=== PATIENT | female | born 1965 | race Caucasian/White ===

== ENCOUNTER 2024-03-05 07:06 | Emergency (ER) | payer OTHER, SELFPAY ==
[2024-03-05 07:11] VITALS: BP 163/100; PULSE 66; RESP 18; TEMP 37.1; O2SAT 97; BMI 36.0
--- NOTE | 2024-03-05 07:24 | XR_ITS ---
Patient: JEYSON RIVERA Facility:?[facility] Patient ID:?[id number] Site Patient ID:?[id number]. Site :?[id number] Study:?XRay-Extremity Right elbow 3v-03/05/2024 7:41:57 AM Ordering Physician:?Frannie Das Final Report: Indication: Injury and pain Technique: Right elbow 3 views Comparison: None Impression: A subtle nondisplaced fracture involving the volar aspect of the radial head, with associated elbow effusion. Small radiopaque fragment adjacent to the distal lateral humeral epicondyle, which may represent calcium deposits in the setting of tendinosis versus less likely small avulsion fracture. Dictated by Wilfrid Degroot MD @ 03/05/2024 7:48:45 AM Signed by:?Wilfrid Degroot MD @03/05/2024 7:48:45 AM (Electronic Signature)
--- NOTE | 2024-03-05 07:25 | ED_ITS ---
HPI - General Adult General Chief complaint: Extremity Pain/Injury, Upper Stated complaint: arm injury Time Seen by Provider: 03/05/24 07:30 Source: patient Mode of arrival: ambulatory Limitations: no limitations History of Present Illness HPI narrative: 59-year-old female traveling [employer] presents to the emergency department after a fall in a parking lot. Reports that she tripped over her feet as she wa s attempting to get her bags and get out of the car. She fell landing on her left knee and her right elbow. She now has significant pain in the right elbow area, cannot extend. Pain is mainly at the proximal radial head area. She has a prior history of humeral fracture with plates from 2019. She does not take any anticoagulants. She did not hit her head. She says the knee just feels like it is bruised, she can bear weight, walk and bend the knee though it is tender. She has history of bilateral knee replacements. Denies neurological changes, has not taken any medication for pain thus far. Incident happened only a few minutes prior to presentation. Past medical history notable for hypertension. Reports use of amlodipine, Synthroid, losartan, metoprolol and sertraline. Nonsmoker. Only meal this morning has been a few sips of black coffee. No anticoagulants. ROS is notable for right elbow and left knee pain as stated above, otherwise denies times 12 systems. Related Data Home Medications Medication Instructions Recorded Confirmed amlodipine 5 mg tablet 5 mg PO DAILY 03/05/24 03/05/24 levothyroxine 150 mcg tablet 150 mcg PO DAILY 03/05/24 03/05/24 (Levo-T) losartan 100 mg tablet 100 mg PO DAILY 03/05/24 03/05/24 metoprolol succinate 100 mg 100 mg PO DAILY 03/05/24 03/05/24 tablet,extended release 24 hr sertraline 150 mg capsule 150 mg PO DAILY 03/05/24 03/05/24 Previous Rx's Medication Instructions Recorded cyclobenzaprine 10 mg tablet 10 mg PO HS PRN muscle spasm #14 03/05/24 tabs hydroxyzine pamoate 25 mg capsule 25 mg PO TID PRN #20 caps 03/05/24 (Vistaril) oxycodone 5 mg tablet 5 - 10 mg (1 - 2 x 5 mg) PO Q4H 03/05/24 PRN pain #25 tabs Allergies Allergy/AdvReac Type Severity Reaction Status Date / Time morphine Allergy Severe Hives, Verified 03/05/24 07:11 Shortness of breath Penicillins Allergy Severe Hives, Verified 03/05/24 07:11 Shortness of breath Beta James Allergy Severe Vomiting Uncoded 03/05/24 07:11 [facility] Social History Smoking Status: Former smoker How often do you have a drink containing alcohol: never AUDIT-C Alcohol total score: 0 Non-prescribed substance use: denies use Exam Const: Vital Signs, click to edit/add: Vital Signs - 24 hr 03/05/24 07:11 Temperature 98.7 F Pulse Rate [Pulse Oximeter] 66 Respiratory Rate 18 Blood Pressure [Le ft Upper Arm] 163/100 H Pulse Oximetry 97 Oxygen Delivery Me thod Room Air Documenting provider has reviewed patient's vital signs: yes Common normals: alert General appearance: well kempt Other: Seems to be in some mild distress from pain but otherwise appropriate. No signs of intoxication. Good historian. HENMT: Common normals: normocephalic Head and scalp: normocephalic Face and sinus: normal facial exam Mouth: oral and palatal mucosa normal Eye: General eye: normal appearance of both eyes Neck & C-Spine: Common normals: full ROM Resp: Common normals: normal respiratory effort and clear to auscultation bilaterally Effort & inspection: able to speak in complete sentences Auscultation: clear to auscultation bilaterally Cardio: Common normals: regular rate, regular rhythm, S1 normal heart sound, S2 normal heart sound and no murmurs Rate: regular rate Rhythm: regular rhythm Heart sounds: S1 normal and S2 normal Extremity: Other: Left knee with midline scar consistent with remote total knee arthroplasty. There is some mild prepatellar area swelling and bruising but normal range of motion and no point bony tenderness. Right shoulder with surgical scarring consistent with reported procedure. Manipulation of shoulder is a little difficult due to pain in the elbow but when we isolate the elbow I can see that her range of motion in the shoulder does seem normal with no point bony tenderness in the shoulder. Right wrist has normal range of motion, no swelling or point bony tenderness. Normal function range of motion in fingers. The right elbow is a very difficult exam. She does already seem to have an effusion around the radial head and cannot extend, supinate or pronate without significant pain. Fracture suspected. Normal radial pulses right side, normal capillary refill in fingers Neuro: Sensorium/orientation: alert Speech: speech normal Psych: Appearance: well kempt Attitude: engaged Insight: insight good Judgement: judgment good Skin: Narrative: Slight abrasion on left knee only. No other areas of bruising. Course Course ED Course: Mechanical type fall from standing height with no signs of significant head injury. Left knee seems to be abrasion and sprain right elbow concerning for fracture. Recommend right elbow x-ray, Tylenol 1000 mg p.o. x1 and await findings. Reevaluation(s) Time of Reevaluation #1: 08:05 Reevaluation #1: He spoke with Dr. Velarde, ortho on-call. He we both see the radial head fracture, nondisplaced. Patient will not benefit from surgery are splint. Recommended sling for comfort only. 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 Given oxycodone for pain, will add Flexeril as she is complaining of significant muscle spasm now. Her family is going to come pick her up. I recommended orthopedic follow- up. She would like to follow up with her orthopedic provider in [place]. She says that she can coordinate her own appointment. I have had a disc made of her images for her to take with to the appointment. Will provide oxycodone 5-10 mg p.r.n. for pain. Counseled on Tylenol and ibuprofen. Vistaril for pain at junction Flexeril as needed for sleep. Sling provided. Counseled on the importance of range of motion exercises every 1-2 hours during the day while awake. Alarm symptoms reviewed that would warrant ED presentation. She verbalizes understanding and agreement. Vital Signs Vital signs: Initial Vital Signs Temperature 98.7 F 03/05/24 07:11 Temperature Source Temporal Artery Scan 03/05/24 07:11 Pulse Rate 66 03/05/24 07:11 Respiratory Rate 18 03/05/24 07:11 Blood Pressure 163/100 H 03/05/24 07:11 Blood Pressure Mean 121 H 03/05/24 07:11 Blood Pressure Position Sitting 03/05/24 07:11 Pulse Oximetry 97 03/05/24 07:11 Oxygen Delivery Method Room Air 03/05/24 07:11 Vital Signs Temperature 98.7 F 03/05/24 07:11 Pulse Rate 66 03/05/24 07:11 Respiratory Rate 18 03/05/24 07:11 Blood Pressure 163/100 H 03/05/24 07:11 Pulse Oximetry 97 03/05/24 07:11 Oxygen Delivery Method Room Air 03/05/24 07:11 Temperature 98.7 F 03/05/24 07:11 Pulse Rate 66 03/05/24 07:11 Respiratory Rate 18 03/05/24 07:11 Blood Pressure 163/100 H 03/05/24 07:11 Pulse Oximetry 97 03/05/24 07:11 Oxygen Delivery Method Room Air 03/05/24 07:11 Medications Administered Medications: Discontinued Medications Generic Name Dose Route Start Last Admin Trade Name Freq PRN Reason Stop Dose Admin Acetaminophen 1,000 mg 03/05/24 07:24 03/05/24 07:39 Acetaminophen 500 Mg Tablet PO 03/05/24 07:25 1,000 mg ONCE ONE Administration Cyclobenzaprine HCl 10 mg 03/05/24 08:16 03/05/24 08:28 Cyclobenzaprine Hcl 10 Mg Tablet PO 03/05/24 08:17 10 mg ONCE ONE Administration Ondansetron HCl 4 mg 03/05/24 07:49 03/05/24 07:30 Ondansetron Odt 4 Mg Tab PO 03/05/24 07:50 4 mg ONCE ONE Administration Oxycodone HCl 5 mg 03/05/24 07:59 03/05/24 08:04 Oxycodone 5 Mg Tablet PO 03/05/24 08:00 5 mg ONCE ONE Administration Medical Decision Making Imaging Data Right elbow x-ray: Attestation: I have reviewed the pertinent imaging results. My impression: Radial head fracture, effusion. Radiologist's impression: Impression: A subtle nondisplaced fracture involving the volar aspect of the radial head, with associated elbow effusion. Small radiopaque fragment adjacent to the distal lateral humeral epicondyle, which may represent calcium deposits in the setting of tendinosis versus less likely small avulsion fracture. Discharge Plan Discharge Clinical Impression: Closed fracture of head of right radius Patient Disposition: Home w/ Parent or Adult Condition: Improved Instructions: Elbow Fracture (DC) Additional Instructions: As we discussed, there is a small fracture at the radial head. It is not displaced, it will not benefit from surgery. This type of fracture actually does not benefit from a splint either. It is important that you are wearing a sling just for comfort but taking it out of the sling at least every 2 hours, preferably about every hour while you are awake and trying to fully bend the elbow, fully flex it and work on both supination and pronation as I demonstrated today. Unfortunately, this will be rather painful. I recommend Tylenol 1000 mg every 6 hours and or ibuprofen 600 mg every 6 hours. I will prescribe oxycodone 5 mg, up to 10 mg every 4 hours. Try to use this sparingly. I do find benefit to Vistaril, an antihistamine that is often paired with oxycodone for orthopedic ailments and can be very effective in boosting the pain control properties. I will also give the some Flexeril to use at bedtime as needed. Try to wean off of the oxycodone as soon as possible. Remember of the risk of constipation with oxycodone. I recommend using 1 senna tablet for about every 3 tablets of oxycodone and adding in MiraLax up to every 8 hours as needed to keep your bowel movements titrated to once daily. The knee does not seem to be severely injured but will have swelling. Ice both areas as needed and follow up with her orthopedic provider within the next week. Bring your disc of images with you to the appointment. I have given you a note to be off of work for at least the next 7 days but it may take up to 4 weeks to heal. It is difficult to tell when you will be back at work but it could be as soon as 10 days depending on how things go. It is just certainly see too soon to tell. Additional return to work and or medication refills will need to come from your primary orthopedist or primary care physician. Activity Level: Light activity Discharge Diet: Regular Prescriptions: New oxycodone 5 mg tablet 5 - 10 mg PO Q4H PRN (Reason: pain) Qty: 25 0RF hydroxyzine pamoate [Vistaril] 25 mg capsule 25 mg PO TID PRNQty: 20 0RF Rx Instructions: pain medication booster cyclobenzaprine 10 mg tablet 10 mg PO HS PRN (Reason: muscle spasm) Qty: 14 0RF No Action levothyroxine [Levo-T] 150 mcg tablet 150 mcg PO DAILY metoprolol succinate 100 mg tablet extended release 24 hr 100 mg PO DAILY losartan 100 mg tablet 100 mg PO DAILY amlodipine 5 mg tablet 5 mg PO DAILY sertraline 150 mg capsule 150 mg PO DAILY Stand Alone Forms: [facility] Info Instructions
[2024-03-05] MEDS: ONDANSETRON ODT 4 MG TAB PO (07:30)
[2024-03-05] MEDS: ACETAMINOPHEN 500 MG TABLET 1000 MG PO (07:39)
[2024-03-05] MEDS: OXYCODONE 5 MG TABLET PO (08:04)
[2024-03-05] MEDS: CYCLOBENZAPRINE HCL 10 MG TABLET PO (08:28)
[2024-03-05] MEDS: IBUPROFEN 200 MG TABLET 600 MG PO (10:30)
[2024-03-05] MEDS: hydrOXYzine pamoate 25 MG CAPSULE PO (10:30)
== END 2024-03-05 10:45 | disposition home or self-care (01) ==
PROVIDERS: Emergency Provider Family Medicine
DX: S52.121A Displaced fracture of head of right radius, initial encounter for closed fracture (principal); W01.0XXA Fall on same level from slipping, tripping and stumbling without subsequent striking against object, initial encounter
CPT/HCPCS: 73080; 99283; 99284; A9270